=== PATIENT | female | born 1930 | race Caucasian/White ===

== ENCOUNTER 2016-05-24 09:19 | Inpatient (IN) | payer MEDICARE, BC, MEDICAID ==
[2016-05-24] MEDS ORDERED: IPRATROPIUM BROMIDE 0.5 MG/2.5 ML DOSE ONE (10:24)
[2016-05-24 10:45] LABS: ABSOLUTE NEUTROPHIL COUNT 4.9 K/mm3 (1.8-7.7); BASO % 0.3 % (0.2-1.0); HEMATOCRIT 35.7 % (37.0-47.0); HEMOGLOBIN 11.6 gm/l (12.0-16.0); IMM NEUT% 0.3 % (0-1); LYMPH # 0.6 (1.0-4.8); LYMPH % 9.6 % (15-45); MEAN CELL VOLUME 93.9 fl (81.0-99.0); MEAN CORPUSCULAR HEMOGLOBIN 30.5 pg (27.0-31.0); MEAN CORPUSCULAR HGB CONC 32.5 g/dl (33.0-37.0); MEAN PLATELET VOLUME 7.6 fl (7.4-10.4); MONO # 0.7 (0.0-0.8); MONO % 10.9 % (4-12); NEUT % 78.9 % (43-75); PLATELET COUNT 314 K/mm3 (130-400); RED CELL DISTRIBUTION WIDTH 14.3 % (11.5-14.5)
[2016-05-24 10:55] LABS: ALB/GLOB RATIO 1.1 (>1.0); ALBUMIN 3.4 gm/dL (3.5-5.7); CALCIUM 9.1 mg/dL (8.6-10.3); MAGNESIUM 1.8 mg/dL (1.9-2.7)
[2016-05-24] MEDS ORDERED: LACTATED RINGERS 1,000 ML ONE ×2 (11:13→12:12)
--- NOTE | 2016-05-24 11:49 | RAD ---
CHEST 2 VIEWS HISTORY: Cough and shortness of breath. Frontal and lateral chest radiographs dated 05/16/2016. COMPARISON: 05/23/2016 FINDINGS: FOCAL AIRSPACE OPACITY: Progressive retrocardiac density. PLEURAL EFFUSION: Small pleural effusions, left greater than right. CARDIOMEDIASTINAL SILHOUETTE: Redemonstration of cardiomegaly. PNEUMOTHORAX: None identified. OSSEOUS STRUCTURES: Thoracic disc degeneration. LUNG VOLUMES: Hyperinflation. POSTPROCEDURAL CHANGE: Evidence of prior right mastectomy and axillary dissection. IMPRESSION: 1. Redemonstration of left lower lobe pneumonia, mildly worsened over the interval. 2. Background changes of hyperinflation, correlate for obstructive pulmonary disease. 3. Thoracic spondylosis. 4. Evidence of prior right mastectomy and axillary dissection.
[2016-05-24] MEDS ORDERED: CEFTRIAXONE SODIUM 1 G VIAL ONE (12:11)
[2016-05-24] MEDS ORDERED: SODIUM CHLORIDE 0.9% 50 ML IV ONE (12:11)
[2016-05-24] MEDS ORDERED: AZITHROMYCIN 500 MG VIAL ONE (12:11)
[2016-05-24 13:09] VITALS: BMI 31.1
[2016-05-24] MEDS ORDERED: MAGNESIUM HYDROXIDE 30 ML UDCUP PO PRN (13:25)
[2016-05-24] MEDS ORDERED: BISACODYL 5 MG TABLET.EC PO PRN (13:25)
[2016-05-24] MEDS ORDERED: DIPHENHYDRAMINE HCL 25 MG CAPSULE PO PRN (13:25)
[2016-05-24] MEDS ORDERED: BISACODYL 10 MG SUP PR PRN (13:25)
[2016-05-24] MEDS ORDERED: BLISTEX LIPSTICK 1 EACH TP PRN (13:25)
[2016-05-24] MEDS ORDERED: MENTHOL/CETYLPYRD 1 EACH LOZENGE PO PRN (13:25)
[2016-05-24] MEDS ORDERED: SODIUM CHLORIDE 0.9% 1,000 ML IV SCH (13:30)
[2016-05-24] MEDS ORDERED: CEFTRIAXONE 1 GRAM DUPLEX 1 G in Premix (D5W) 50 ml 1 EACH IV SCH (13:45)
[2016-05-24] MEDS: METOPROLOL TARTRATE 50 MG TABLET PO SCH ×2 (14:37→20:39)
[2016-05-24] MEDS: PREDNISONE 20 MG TABLET PO SCH (14:37)
[2016-05-24] MEDS: ENOXAPARIN SODIUM 40 MG/0.4 ML SYRINGE SUB-Q SCH (14:38)
[2016-05-24] MEDS: ALBUTEROL/IPRATROPIUM 2.5/0.5 MG 3 ML/EACH DOSE NEB SCH ×2 (15:51→20:05)
--- NOTE | 2016-05-24 19:18 | HP ---
GAL PARKS : 1930 [id number] DATE OF ADMISSION: May 24, 2016 PRIMARY CARE PROVIDER: Usha Fields CHIEF COMPLAINT: Cough. HISTORY OF PRESENT ILLNESS: Patient is an 85-year-old female who has been coughing for the past month or so. In the past two days, though, she notes that her cough has gotten significantly worse. She went to the urgent care last night and was evaluated there. They recommended that she go to the hospital though she refused. She was given azithromycin to take for pneumonia that was diagnosed by chest x-ray there. Patient did tolerate a single dose of the azithromycin last night. However, this morning when she took her azithromycin, she then had an episode of nausea and vomiting and lost that medication. Patient was having increased shortness of breath this morning as well as cough and so she came to the emergency department. She was noted to be now requiring oxygen. In the emergency room she maintained sats over 90% and so is admitted for management of pneumonia requiring oxygen. REVIEW OF SYSTEMS: A full 14-point review of systems is performed and is positive for a cough, positive for nausea and vomiting this morning though no nausea and vomiting other times, positive for generalize malaise and weakness. Patient is not able to get up sputum although she states she feels like she needs to. She also notes that she feels like her heart is skipping beats. She does not know of any history of atrial fibrillation. All other review of systems is negative. PAST MEDICAL HISTORY: Includes: 1. Diverticulosis. 2. Depression. 3. Gastroesophageal reflux disease. 4. Hypertension. 5. Hyponatremia. Baseline sodium around 130 to 132. 6. Polio with neurologic changes. She has an indwelling suprapubic catheter as well as bilateral lower extremities braces. 7. Neurogenic bladder. 8. Spinal stenosis. 9. She did have some breast cancer approximately 15 years ago. MEDICATIONS: Patient is takin. Methenamine hippurate 1 g orally twice daily. 2. Sodium chloride 1 g orally daily. 3. Mirtazapine 30 mg orally at bedtime. 4. Vitamin D3 1000 international units orally daily. 5. Singulair 10 mg orally daily. 6. Super C 500 mg orally daily. ALLERGIES TO MEDICATIONS: PATIENT IS ALLERGIC TO: 1. CONTRAST DYE. 2. SHELLFISH. 3. HYDROCODONE. 4. MEPERIDINE. PAST SURGICAL HISTORY: Positive for: 1. Hysterectomy. 2. Back surgery. 3. section. 4. She also had a suprapubic catheter placed at some point. 5. She did have a right mastectomy. SOCIAL HISTORY: Patient lives alone. She denies any smoking or drug use. She has a daughter who is with her today. FAMILY MEDICAL HISTORY: Noncontributory. PHYSICAL EXAM: VITAL SIGNS: Temperature 98.1, pulse is 95, blood pressure 164/87, respiratory rate 28, saturating 96% on room air by time of admission. GENERAL: Patient is lying in bed. She does have a weak cough. She is alert and oriented and does not appear to be in any distress. HEENT: Normocephalic, atraumatic. Mucous membranes moist. Oropharynx is clear. Pupils are equal and reactive. HEART: Irregularly irregular rate and rhythm, slightly tachycardic. Positive S1 and S2, no murmurs or rubs are heard. RESPIRATORY: Patient has bilateral wheezes and crackles throughout with air movement diffusely. ABDOMEN: Soft, nontender, nondistended, positive bowel sounds. No hepatosplenomegaly. MUSCULOSKELETAL: She has bilateral lower extremities ankle foot orthosis. Using upper extremities without difficulty. NEUROLOGIC: Patient is awake, alert and oriented times three. PSYCHOLOGIC: Patient is affect is full and appropriate. LABORATORIES: Sodium is 127, potassium is 4.1, chloride is 92, CO2 is 26, BUN is 10, creatinine is 0.6, glucose is 151, calcium is 9.1, magnesium is 1.8, bilirubin 0.4, AST and ALT are both normal, alkaline phosphatase is 159, troponin is 0.01. BNP is 127. CBC shows a white count of 6.3, hemoglobin 11.6, hematocrit is 35.7 and platelet count of 314 with a slight left shift and neutrophils of 78.9%. VBG lactate in the emergency department shows 2.6 after administration of her of IV fluids in the emergency room, though, her repeat VBG showed 1.7. ASSESSMENT AND PLAN: 1. Pneumonia. Patient has community acquired pneumonia which is in her left lower lobe per x-ray. She will be receiving ceftriaxone IV 1 g every 24 hours as well as azithromycin as the patient did start azithromycin orally. She got one dose of IV azithromycin but I am going to continue oral azithromycin while she is here in the hospital. She will be receiving oxygen and nebulizers as needed while she is here, and we will monitor and adjust course as necessary. I am not going to be starting her on any steroids at this point. However, that would be a possible addition should she not do well. 2. History of polio. Patient does have braces in place as well as a suprapubic catheter. We will be caring for her suprapubic catheter if necessary. 3. Atrial fibrillation. It apparently appears to be relatively new although she has had symptoms of palpitations for several weeks, thus I do not think it is new onset at this point, but more likely a relatively new occurrence for her in the past several weeks to months. Patient was on metoprolol in the past. I am going to restart her metoprolol at 50 mg orally twice daily in the hopes that this will help both her blood pressure as well as her atrial fibrillation rate. I have discussed the possibility of starting Coumadin with her. She declines to start now and would prefer to wait until she can discuss with her primary care provider. She is concerned about the risks and side effects of the Coumadin. Instead we will be placing her on aspirin at full dose for anticoagulation as well as Lovenox while she is here in the hospital. 4. Hypertension. Patient will be given the metoprolol as noted above and will be adjusting for blood pressure control as necessary. 5. Reflux. Patient will be given pantoprazole for management of her heartburn. 6. Hyponatremia. Patient is going to be monitored. It appears she is relatively close to her baseline of 127. I suspect this will improve even more so with the IV fluids that she received in the emergency department. We will follow up on this in the morning and continue her oral sodium chloride as is. 7. Constipation. Patient apparently has a history of constipation although this has been relatively well controlled at home on [id number] medications. I will be ordering bowel care as necessary. 8. Deep venous thrombosis prophylaxis. As noted above, the patient will be on Lovenox for prophylaxis of clots. This will cover her for deep venous thrombosis prophylaxis as well. 9. Code status. Patient wishes to be DO NOT RESUSCITATE in conversation at time of this admission. Cc: Usha Fields
[2016-05-24] MEDS: ACETAMINOPHEN 325 MG TABLET PO PRN (20:39)
[2016-05-24] MEDS: DOCUSATE SODIUM 100 MG CAPSULE PO SCH (20:39)
[2016-05-25] MEDS: ALBUTEROL NEB 2.5 MG/3 ML VIAL.NEB NEB PRN (03:59)
[2016-05-25 06:02] LABS: ABSOLUTE NEUTROPHIL COUNT 4.1 K/mm3 (1.8-7.7); BASO % 0.2 % (0.2-1.0); HEMATOCRIT 34.3 % (37.0-47.0); HEMOGLOBIN 11.3 gm/l (12.0-16.0); IMM NEUT% 0.4 % (0-1); LYMPH # 0.8 (1.0-4.8); LYMPH % 14.1 % (15-45); MEAN CELL VOLUME 92.7 fl (81.0-99.0); MEAN CORPUSCULAR HEMOGLOBIN 30.5 pg (27.0-31.0); MEAN CORPUSCULAR HGB CONC 32.9 g/dl (33.0-37.0); MEAN PLATELET VOLUME 7.9 fl (7.4-10.4); MONO # 0.6 (0.0-0.8); MONO % 10.6 % (4-12); NEUT % 74.7 % (43-75); PLATELET COUNT 310 K/mm3 (130-400); RED CELL DISTRIBUTION WIDTH 14.3 % (11.5-14.5)
--- NOTE | 2016-05-25 08:01 | PDOC43 ---
- Subjective Chief Complaint: cough pt notes improvement in malaise as well as cough. she notes nebs are helpful. no fevers/chills. coughing still but improved. no wheezing reported by pt Subjective: Reports Pain Tolerable, Reports Tolerating Diet Well, Reports Adequate Oral Intake, Reports Flatus, Reports Urinating Without Difficulty, Reports Cough, Denies Shortness of Breath, Denies Chest Pain, Denies Abdominal Pain, Denies Nausea, Denies Vomiting, Denies Fever, Denies Chills - Objective Vital Signs Temperature 98.4 F 05/25/16 04:00 Pulse Rate 96 05/25/16 04:00 Respiratory Rate 36 05/25/16 07:00 Blood Pressure 165/72 05/25/16 04:00 O2 Saturation by Pulse Oximetry 99 05/25/16 04:00 Oxygen Delivery Method Room Air Oxygen Flow Rate 0 Intake and Output 05/23/16 05/24/16 05/25/16 23:59 23:59 23:59 Intake Total 1000 500 Output Total 700 550 Balance 300 -50 General: Alert, Oriented x3, Cooperative, No Acute Distress HEENT: Atraumatic, Mucous membr. moist/pink Lungs: Normal Air Movement (improved from yesterday evening.), No Clear to Auscultation Bilaterally (wheezes BL throughout, but improved) Cardiovascular: Irregular, Normal S1, Normal S2, No Murmur Abdomen: Soft, Normal Bowel Sounds, Non-Distended, No Tenderness Extremities: No Cyanosis, No Edema, No Tenderness Neurological: Normal Speech Psych/Mental Status: Normal Affect, Normal Mood Laboratory 05/25/16 05:10 05/25/16 05:10 05/25/16 05:10 RBC 3.70 L MCHC 32.9 L Estimated GFR 118 H Current Medications: Current meds reviewed in EMR. - Problems: Assessment/Plan (1) Anemia Qualifiers: Anemia type: other cause Other causes of anemia: chronic disease, other Qualifier Code: (D63.8) Anemia in other chronic diseases classified elsewhere Status: Acute Assessment/Plan: stable. no loss apparent currently (2) Hyponatremia Status: Chronic Assessment/Plan: chronic and appears at baseline. continue home NaCl (3) Post-polio syndrome Status: Chronic Assessment/Plan: has BL braces. also cause of neurogenic bladder. care as needed PT to eval pt (4) GERD (gastroesophageal reflux disease) Status: Chronic Assessment/Plan: controlled, on PPI (5) Hypertension Qualifiers: Hypertension type: essential hypertension Qualifier Code: (I10) Essential (primary) hypertension Status: Chronic Assessment/Plan: elevated today. pt was apparently off metoprolol and amlodipine prior to admit. added back today due to elevated BPs (6) Neurogenic bladder Status: Chronic Assessment/Plan: has suprapubic cath. due to polio care ordered for cath. (7) Community acquired bacterial pneumonia Status: Acute Assessment/Plan: LLL PNA. took only 1 dose of azithro prior to coming in. had O2 requirement on first admit O2 requirement now resolved, pt improving. significant wheezing raises question of underlying COPD, though not on her history or OP chart. duo nebs scheduled with albuterol q2 if needed. on rocephin and azithro PO. will change to keflex after todays rocephin as she is improving well. (8) Atrial fibrillation Qualifiers: Atrial fibrillation type: paroxysmal Qualifier Code: (I48.0) Paroxysmal atrial fibrillation Status: Chronic Assessment/Plan: new dx for pt but has been present per hx for several weeks. not on anticoag as OP, discussed and pt and daughter decline Coumadin initiation in this stay. will give full dose ASA on DC. currently on lovenox rate controlled on metoprolol VTE Prophylaxis: lovenox Disposition: anticipate DC Home in 1-2 days
[2016-05-25] MEDS: ACETAMINOPHEN 325 MG TABLET PO PRN ×2 (08:45→16:02)
[2016-05-25] MEDS: AZITHROMYCIN 250 MG TABLET PO SCH (08:45)
[2016-05-25] MEDS: AMLODIPINE BESYLATE 5 MG TABLET PO SCH (08:46)
[2016-05-25] MEDS: METOPROLOL TARTRATE 50 MG TABLET PO SCH ×2 (08:46→21:17)
[2016-05-25] MEDS: PANTOPRAZOLE 40 MG TABLET DR PO SCH (08:46)
[2016-05-25] MEDS: DOCUSATE SODIUM 100 MG CAPSULE PO SCH ×2 (08:46→21:17)
[2016-05-25] MEDS: PREDNISONE 20 MG TABLET PO SCH (08:46)
[2016-05-25] MEDS ORDERED: CEFTRIAXONE 1 GRAM DUPLEX 1 G in Premix (D5W) 50 ml 1 EACH IV SCH (12:00)
[2016-05-25] MEDS ORDERED: PUMP TUBING ONE (12:49)
[2016-05-25] MEDS: SODIUM CHLORIDE 0.9% 100 ML IV PRN (12:56)
[2016-05-25] MEDS: ENOXAPARIN SODIUM 40 MG/0.4 ML SYRINGE SUB-Q SCH ×2 (12:56→14:00)
[2016-05-25] MEDS: ALBUTEROL/IPRATROPIUM 2.5/0.5 MG 3 ML/EACH DOSE NEB SCH ×3 (13:03→16:45)
[2016-05-25] MEDS ORDERED: ONDANSETRON 4 MG/2ML 2 ML VIAL ONE (15:59)
[2016-05-25] MEDS: ONDANSETRON 4 MG/2ML 2 ML VIAL IV PRN (16:02)
[2016-05-26] MEDS: ACETAMINOPHEN 325 MG TABLET PO PRN ×3 (00:24→18:02)
[2016-05-26] MEDS: ALBUTEROL/IPRATROPIUM 2.5/0.5 MG 3 ML/EACH DOSE NEB SCH ×5 (00:43→20:18)
[2016-05-26 06:04] LABS: ABSOLUTE NEUTROPHIL COUNT 8.6 K/mm3 (1.8-7.7); BASO % 0.1 % (0.2-1.0); CALCIUM 9.3 mg/dL (8.6-10.3); HEMATOCRIT 37.6 % (37.0-47.0); HEMOGLOBIN 12.3 gm/l (12.0-16.0); IMM NEUT% 0.4 % (0-1); LYMPH # 0.8 (1.0-4.8); LYMPH % 7.9 % (15-45); MEAN CELL VOLUME 94.2 fl (81.0-99.0); MEAN CORPUSCULAR HEMOGLOBIN 30.8 pg (27.0-31.0); MEAN CORPUSCULAR HGB CONC 32.7 g/dl (33.0-37.0); MEAN PLATELET VOLUME 7.8 fl (7.4-10.4); MONO # 1.1 (0.0-0.8); MONO % 10.2 % (4-12); NEUT % 81.4 % (43-75); PLATELET COUNT 382 K/mm3 (130-400); RED CELL DISTRIBUTION WIDTH 14.2 % (11.5-14.5)
[2016-05-26] MEDS ORDERED: FUROSEMIDE 20 MG/2 ML VIAL IV ONE (08:08)
--- NOTE | 2016-05-26 08:16 | RAD ---
Exam: Portable chest COMPARISON: Radiographs 05/24/2016, 05/23/2016 and 04/10/[address] chest 04/12/2016 INDICATION: Decreased oxygen saturation and increased respiratory rate. Findings: Semierect AP portable view of the chest at 0800 hours was obtained. Examination is slightly limited due to motion artifact. Mild cardiomegaly is similar. There are chronic left greater than right pleural effusions. The left-sided pleural effusion is moderate in size and definitely increased since March, as well as minimally increased over the past few days. The right-sided pleural effusion is small and unchanged. Upper lungs remain relatively clear. Surgical clips are again noted in the right chest wall and axilla. IMPRESSION: Left greater than right chronic pleural effusions, with slight interval increase in the left-sided pleural effusion.
[2016-05-26] MEDS: PANTOPRAZOLE 40 MG TABLET DR PO SCH (08:24)
[2016-05-26] MEDS: PREDNISONE 20 MG TABLET PO SCH (08:24)
[2016-05-26] MEDS: MONTELUKAST SODIUM 10 MG TABLET PO SCH (08:24)
[2016-05-26] MEDS: AZITHROMYCIN 250 MG TABLET PO SCH (08:24)
[2016-05-26] MEDS: METOPROLOL TARTRATE 50 MG TABLET PO SCH ×2 (08:24→21:06)
[2016-05-26] MEDS: DOCUSATE SODIUM 100 MG CAPSULE PO SCH ×2 (08:25→21:06)
[2016-05-26] MEDS: AMLODIPINE BESYLATE 5 MG TABLET PO SCH (08:25)
--- NOTE | 2016-05-26 08:26 | PDOC43 ---
- Subjective Chief Complaint: cough Anxious and moaning this a.m. Has required increase in O2 to 4 L/min. C/o dyspnea and nnon-productive cough, no chest pain or other symptoms - Objective Vital Signs Temperature 98.4 F 05/26/16 06:56 Pulse Rate 104 05/26/16 06:56 Respiratory Rate 44 05/26/16 06:56 Blood Pressure 157/91 05/26/16 06:56 O2 Saturation by Pulse Oximetry 73 05/26/16 06:56 Oxygen Delivery Method Room Air Oxygen Flow Rate 0 Intake and Output 05/25/16 05/26/16 05/27/16 06:59 06:59 06:59 Intake Total 1500 1735 Output Total 1250 1400 Balance 250 335 General: Alert, Oriented x3, Cooperative, Moderate Distress HEENT: Mucous membr. moist/pink Lungs: Other (exp wheezes throughout, ronchi bilat R > L) Cardiovascular: Irregular (rapid) Abdomen: Soft, Normal Bowel Sounds, No Tenderness, No Masses Extremities: No Edema Skin: Normal Color Neurological: Normal Speech Psych/Mental Status: Anxious Laboratory 05/26/16 05:15 05/26/16 05:15 05/26/16 05:15 RBC 3.99 L MCHC 32.7 L Estimated GFR 95 H Current Medications: Current meds reviewed in EMR. - Problems: Assessment/Plan (1) CHF (congestive heart failure) Qualifiers: Congestive heart failure type: unspecified congestive heart failure type Congestive heart failure chronicity: acute Qualifier Code: (I50.9) Heart failure, unspecified Status: Acute Assessment/Plan: Appears to have acute pulmonary edema this a.m. Furosemide ordered and follow. (2) Community acquired bacterial pneumonia Status: Acute Assessment/Plan: Presumed bacterial LLL PNA present on admit. took only 1 dose of azithro prior to coming in. had O2 requirement which resolved but now has hypoxemia. significant wheezing raises question of underlying COPD, though not on her history or OP chart. duo nebs scheduled with albuterol q2 if needed. Continue ceftriaxone and azithro PO. (3) Atrial fibrillation Qualifiers: Atrial fibrillation type: paroxysmal Qualifier Code: (I48.0) Paroxysmal atrial fibrillation Status: Chronic Assessment/Plan: new dx for pt but has been present per hx for several weeks. not on anticoag as OP, discussed and pt and daughter decline Coumadin initiation in this stay. will give full dose ASA on DC. currently on lovenox rate controlled on metoprolol (4) Hypomagnesemia Status: Acute Assessment/Plan: Replace and repeat test. (5) Anemia Qualifiers: Anemia type: other cause Other causes of anemia: chronic disease, other Qualifier Code: (D63.8) Anemia in other chronic diseases classified elsewhere Status: Acute Assessment/Plan: stable. no loss apparent currently (6) Hyponatremia Status: Chronic Assessment/Plan: chronic and appears at baseline. resume home NaCl (7) Post-polio syndrome Status: Chronic Assessment/Plan: has BL braces. also cause of neurogenic bladder. care as needed PT to eval pt (8) GERD (gastroesophageal reflux disease) Qualifiers: Esophagitis presence: esophagitis presence not specified Qualifier Code : (K21.9) Gastro-esophageal reflux disease without esophagitis Status: Chronic Assessment/Plan: controlled, on PPI (9) Hypertension Qualifiers: Hypertension type: essential hypertension Qualifier Code: (I10) Essential (primary) hypertension Status: Chronic Assessment/Plan: Still significantly elevated, increase metoprolol dose, continue amlodipine. (10) Neurogenic bladder Status: Chronic Assessment/Plan: has suprapubic cath. due to polio care ordered for cath. VTE Prophylaxis: lovenox Disposition: anticipate DC to SNF in 1-3 days.
[2016-05-26] MEDS: CEFTRIAXONE 1 GRAM DUPLEX 1 G in Premix (D5W) 50 ml 1 EACH IV SCH (08:53)
[2016-05-26] MEDS: SODIUM CHLORIDE 1 G TABLET PO SCH ×2 (08:53→21:05)
[2016-05-26] MEDS: METHENAMINE HIPPURATE 1 GM PO SCH ×2 (08:54→22:21)
[2016-05-26] MEDS ORDERED: CEPHALEXIN 500 MG CAPSULE PO SCH (09:00)
[2016-05-26] MEDS ORDERED: MAGNESIUM SULFATE 2 G/50 ML 2 G in Premix (Water) 50 ml 1 EACH IV ONE (09:00)
[2016-05-26 11:49] LABS: INR 1.09; PROTHROMBIN TIME 11.6 SECONDS (9.3-11.4)
[2016-05-26 13:38] LABS: TOTAL PROTEIN,BODY FLUID 1.5 g/dl
[2016-05-26] MEDS ORDERED: SODIUM BICARBONATE 4.2% VIAL 5 ML IV ONE (13:50)
[2016-05-26 14:03] LABS: BODY FLUID APPEARANCE CLEAR; BODY FLUID COLOR COLORLESS; BODY FLUID SOURCE PLEURAL FLUID
[2016-05-26 14:05] LABS: BODY FLUID RBC 2 k/uL
[2016-05-26 14:06] LABS: BODY FLUID WBC 666 /uL
[2016-05-26 14:07] LABS: BODY FLUID MONONUCLEAR 91 %; BODY FLUID NEUTROPHIL 9 %
--- NOTE | 2016-05-26 14:16 | US ---
Procedure: Ultrasound-guided left-sided thoracentesis Comparison: Chest radiograph 05/26/2016 Indication: Bilateral pleural effusions, left greater than right. Left-sided pleural effusion is increasing. Technique: The benefits and risks of the procedure were discussed with the patient. All questions were answered. Informed consent was obtained and witnessed and documentation was placed in the patient's medical record. A timeout was made to ensure correct patient identity and procedure. Ultrasound was utilized to elpidio an appropriate entrance site on the skin in the posterior left chest wall. The skin was prepped and draped in the usual sterile fashion. 1% lidocaine mixed with bicarbonate was administered to achieve a regional level of anesthesia. A tiny skin incision was made. A 5 [place] [employer] catheter was placed into the pleural space and 550 mL of thin yellow fluid was withdrawn. 10 mL of fluid was sent to the laboratory for analysis as requested by the referring physician. The patient tolerated the procedure and there were no immediate complications. Post procedure imaging demonstrated minimal pleural fluid remaining. Impression: Successful ultrasound-guided left-sided thoracentesis yielding 550 mL of thin yellow fluid.
[2016-05-26] MEDS: ENOXAPARIN SODIUM 40 MG/0.4 ML SYRINGE SUB-Q SCH (14:23)
[2016-05-26] MEDS: ALBUTEROL NEB 2.5 MG/3 ML VIAL.NEB NEB PRN (21:24)
[2016-05-27] MEDS: ALBUTEROL NEB 2.5 MG/3 ML VIAL.NEB NEB PRN (05:53)
[2016-05-27 06:06] LABS: MEAN CELL VOLUME 92.7 fl (81.0-99.0); MEAN CORPUSCULAR HEMOGLOBIN 30.1 pg (27.0-31.0); MEAN CORPUSCULAR HGB CONC 32.4 g/dl (33.0-37.0); RED CELL DISTRIBUTION WIDTH 14.3 % (11.5-14.5)
[2016-05-27 06:24] LABS: MAGNESIUM 2.2 mg/dL (1.9-2.7)
[2016-05-27] MEDS: METOPROLOL TARTRATE 50 MG TABLET PO SCH ×2 (08:20→21:11)
[2016-05-27] MEDS: PANTOPRAZOLE 40 MG TABLET DR PO SCH (08:20)
[2016-05-27] MEDS: AMLODIPINE BESYLATE 5 MG TABLET PO SCH (08:21)
[2016-05-27] MEDS: ACETAMINOPHEN 325 MG TABLET PO PRN (08:33)
[2016-05-27] MEDS: ALPRAZOLAM 0.25 MG TABLET PO PRN ×2 (09:20→21:11)
[2016-05-27] MEDS: DOCUSATE SODIUM 100 MG CAPSULE PO SCH ×2 (09:21→21:12)
[2016-05-27] MEDS: AZITHROMYCIN 250 MG TABLET PO SCH (09:21)
[2016-05-27] MEDS: PREDNISONE 20 MG TABLET PO SCH (09:21)
[2016-05-27] MEDS: MONTELUKAST SODIUM 10 MG TABLET PO SCH (09:21)
[2016-05-27] MEDS ORDERED: PUMP TUBING ONE (09:27)
[2016-05-27] MEDS: SODIUM CHLORIDE 0.9% 100 ML IV PRN (09:28)
[2016-05-27] MEDS: CEFTRIAXONE 1 GRAM DUPLEX 1 G in Premix (D5W) 50 ml 1 EACH IV SCH (09:33)
[2016-05-27] MEDS: METHENAMINE HIPPURATE 1 GM PO SCH ×2 (09:34→21:12)
[2016-05-27] MEDS: SODIUM CHLORIDE 1 G TABLET PO SCH ×2 (09:35→21:12)
[2016-05-27] MEDS: ALBUTEROL/IPRATROPIUM 2.5/0.5 MG 3 ML/EACH DOSE NEB SCH ×4 (09:55→20:15)
[2016-05-27] MEDS ORDERED: AMLODIPINE BESYLATE 5 MG TABLET PO SCH (10:23)
[2016-05-27] MEDS ORDERED: POTASSIUM CHLORIDE 20 MEQ TAB.PRT.SR PO ONE (10:27)
--- NOTE | 2016-05-27 10:27 | PDOC43 ---
- Subjective Chief Complaint: cough Still feels ill and dyspnic but a little better post thoracentesis. Eating well. - Objective Vital Signs Temperature 97.9 F 05/27/16 07:48 Pulse Rate 101 05/27/16 07:48 Respiratory Rate 38 05/27/16 07:48 Blood Pressure 177/102 05/27/16 07:48 O2 Saturation by Pulse Oximetry 93 05/27/16 07:48 Oxygen Delivery Method Nasal Cannula Oxygen Flow Rate 2 Intake and Output 05/26/16 05/27/16 05/28/16 06:59 06:59 06:59 Intake Total 1735 647 Output Total 1400 1275 Balance 335 -628 General: Alert, Oriented x3, Cooperative, Mild Distress HEENT: Mucous membr. moist/pink Lungs: Other (exp wheezes throughout, improved air movement on left) Cardiovascular: Irregular Abdomen: Soft, Normal Bowel Sounds, No Tenderness, No Masses Extremities: Pulses Diminished but Palpable, No Edema Skin: Normal Color Neurological: Normal Speech Psych/Mental Status: Anxious Laboratory 05/27/16 05:15 05/27/16 05:15 05/27/16 05/26/16 05:15 11:30 RBC 3.99 L MCHC 32.4 L PT 11.6 H Estimated GFR 95 H Current Medications: Current meds reviewed in EMR. - Problems: Assessment/Plan (1) CHF (congestive heart failure) Qualifiers: Congestive heart failure type: unspecified congestive heart failure type Congestive heart failure chronicity: acute Qualifier Code: (I50.9) Heart failure, unspecified Status: Acute Assessment/Plan: Diuresed 628 mL after one dose of furosemide 05/26. Check ECHO. (2) Community acquired bacterial pneumonia Status: Acute Assessment/Plan: Presumed bacterial LLL PNA present on admit. took only 1 dose of azithro prior to coming in. had O2 requirement on admit, resolved, then returned With laney-pneumonic transudate drained on 05/26. significant wheezing raises question of underlying COPD, though not on her history or OP chart. Oral prednisone started 05/24 duo nebs scheduled with albuterol q2 if needed. Continue ceftriaxone and azithro PO. (3) Atrial fibrillation Qualifiers: Atrial fibrillation type: paroxysmal Qualifier Code: (I48.0) Paroxysmal atrial fibrillation Status: Chronic Assessment/Plan: new dx for pt but has been present per hx for several weeks. not on anticoag as OP, discussed and pt and daughter decline Coumadin initiation in this stay. will give full dose ASA on DC. currently on lovenox rate controlled on metoprolol (4) Hypomagnesemia Status: Acute Assessment/Plan: Resolved. (5) Anemia Qualifiers: Anemia type: other cause Other causes of anemia: chronic disease, other Qualifier Code: (D63.8) Anemia in other chronic diseases classified elsewhere Status: Acute Assessment/Plan: stable. no blood loss apparent currently (6) Hyponatremia Status: Chronic Assessment/Plan: chronic and appears at baseline. Continue home NaCl dose (7) Post-polio syndrome Status: Chronic Assessment/Plan: has BL braces. also cause of neurogenic bladder. care as needed PT to eval pt (8) GERD (gastroesophageal reflux disease) Qualifiers: Esophagitis presence: esophagitis presence not specified Qualifier Code : (K21.9) Gastro-esophageal reflux disease without esophagitis Status: Chronic Assessment/Plan: controlled, on PPI (9) Hypertension Qualifiers: Hypertension type: essential hypertension Qualifier Code: (I10) Essential (primary) hypertension Status: Chronic Assessment/Plan: Still significantly elevated, increase metoprolol, continue amlodipine. (10) Neurogenic bladder Status: Chronic Assessment/Plan: has suprapubic cath. due to polio care ordered for cath. (11) Hypokalemia Status: Acute Assessment/Plan: due to diuresis, replace. VTE Prophylaxis: lovenox Disposition: anticipate DC to SNF in 1-3 days.
[2016-05-27] MEDS: FUROSEMIDE 20 MG TABLET PO SCH (11:18)
[2016-05-27] MEDS: POTASSIUM CHLORIDE 10 MEQ TAB.SR PO SCH ×2 (11:18→21:12)
[2016-05-27] MEDS: ENOXAPARIN SODIUM 40 MG/0.4 ML SYRINGE SUB-Q SCH (13:45)
[2016-05-28] MEDS: ACETAMINOPHEN 325 MG TABLET PO PRN (07:31)
[2016-05-28] MEDS: ALPRAZOLAM 0.25 MG TABLET PO PRN ×2 (07:45→21:11)
--- NOTE | 2016-05-28 09:29 | SURGPATH ---
[facility] [address] [place] [id number] Patient Name: GAL PARKS MR#: [id number] : 1930 Gender: F Specimen #: [id number] Collected: 05/26/2016 Received: 05/27/2016 Reported: 05/28/2016 Submitting Phys: MASOUD SALES Copy To Phys: NICKIE CARNES JULIAN KIRKPATRICK, NOEMI [facility] Clinical History / Pre-Operative Diagnosis: Pleural effusion Specimen Source / Surgical Procedure Performed: Left Pleural Fluid Interpretation: PLEURAL FLUID, LEFT, THORACENTESIS: - NO MALIGNANT CELLS IDENTIFIED Electronically Signed Out Flaco Matias M.D. Gross Description: 35ml of slightly cloudy pale beige fluid in cytolyt. Prepared: 1 double fixed cytospin. Microscopic Description: Cytospins show lymphocytes, proteinaceous material, and mesothelial cells. No malignant cells are identified. [id number]: [id number]
[2016-05-28] MEDS: CEFTRIAXONE 1 GRAM DUPLEX 1 G in Premix (D5W) 50 ml 1 EACH IV SCH (09:58)
[2016-05-28] MEDS: SODIUM CHLORIDE 0.9% 100 ML IV PRN (09:58)
[2016-05-28] MEDS ORDERED: PUMP TUBING ONE (09:59)
[2016-05-28] MEDS: SODIUM CHLORIDE 1 G TABLET PO SCH ×2 (10:05→21:16)
[2016-05-28] MEDS: AZITHROMYCIN 250 MG TABLET PO SCH (10:05)
[2016-05-28] MEDS: FUROSEMIDE 20 MG TABLET PO SCH (10:06)
[2016-05-28] MEDS: AMLODIPINE BESYLATE 5 MG TABLET PO SCH (10:06)
[2016-05-28] MEDS: MONTELUKAST SODIUM 10 MG TABLET PO SCH (10:06)
[2016-05-28] MEDS: POTASSIUM CHLORIDE 10 MEQ TAB.SR PO SCH ×2 (10:06→21:11)
[2016-05-28] MEDS: PREDNISONE 20 MG TABLET PO SCH (10:06)
[2016-05-28] MEDS: DOCUSATE SODIUM 100 MG CAPSULE PO SCH ×2 (10:07→21:12)
[2016-05-28] MEDS: METOPROLOL TARTRATE 50 MG TABLET PO SCH ×2 (10:07→21:12)
[2016-05-28] MEDS: PANTOPRAZOLE 40 MG TABLET DR PO SCH (10:07)
--- NOTE | 2016-05-28 10:26 | PDOC43 ---
- Subjective Chief Complaint: cough Sleeping after receiving one dose 0.125 mg alprazolam. Has been agitated and calling out for help frequently. Out patient records show that she should be on Remeron at bedtime. - Objective Vital Signs Temperature 97.5 F 05/28/16 08:34 Pulse Rate 76 05/28/16 08:34 Respiratory Rate 18 05/28/16 08:34 Blood Pressure 163/96 05/28/16 08:34 O2 Saturation by Pulse Oximetry 98 05/28/16 08:34 Oxygen Delivery Method Nasal Cannula Oxygen Flow Rate 2 Intake and Output 05/27/16 05/28/16 05/29/16 06:59 06:59 06:59 Intake Total 647 943 200 Output Total 1275 1575 Balance -628 -632 200 General: Other (somnolent) HEENT: Mucous membr. moist/pink Lungs: Other (exp wheezes) Cardiovascular: Irregular Abdomen: Soft, Normal Bowel Sounds, No Tenderness, No Masses Extremities: Normal Pulses, No Edema Skin: Normal Color Laboratory 05/27/16 05:15 05/28/16 05:15 05/28/16 05:15 Estimated GFR 118 H Current Medications: Current meds reviewed in EMR. - Problems: Assessment/Plan (1) CHF (congestive heart failure) Qualifiers: Congestive heart failure type: unspecified congestive heart failure type Congestive heart failure chronicity: acute Qualifier Code: (I50.9) Heart failure, unspecified Status: Acute Assessment/Plan: Diuresed 628 mL after one dose of furosemide 05/26. ECHO consistent with mild chronic diastolic heart failure, continue furosemide tx. (2) Community acquired bacterial pneumonia Status: Acute Assessment/Plan: Presumed bacterial LLL PNA present on admit. took only 1 dose of azithro prior to coming in. had O2 requirement on admit, resolved, then returned With laney-pneumonic transudate drained on 05/26. significant wheezing raises question of underlying COPD, though not on her history or OP chart. Oral prednisone started 05/24 duo nebs scheduled with albuterol q2 if needed. Continue ceftriaxone, finished course of azithromycin. Anticipate change to oral cephalosporin and prednisone taper back to baseline dose of 10 mg daily upon discharge. (3) Atrial fibrillation Qualifiers: Atrial fibrillation type: paroxysmal Qualifier Code: (I48.0) Paroxysmal atrial fibrillation Status: Chronic Assessment/Plan: new dx for pt but has been present per hx for several weeks. not on anticoag as OP, discussed and pt and daughter decline Coumadin initiation in this stay. will give full dose ASA on DC. currently on lovenox rate controlled on metoprolol (4) Hypomagnesemia Status: Acute Assessment/Plan: Resolved. (5) Anemia Qualifiers: Anemia type: other cause Other causes of anemia: chronic disease, other Qualifier Code: (D63.8) Anemia in other chronic diseases classified elsewhere Status: Acute Assessment/Plan: stable. no blood loss apparent currently (6) Hyponatremia Status: Chronic Assessment/Plan: Chronic but Na+ is normal when on her usual home NaCl dose. (7) Post-polio syndrome Status: Chronic Assessment/Plan: has BL braces. also cause of neurogenic bladder. care as needed Will need SNF rehab. (8) GERD (gastroesophageal reflux disease) Qualifiers: Esophagitis presence: esophagitis presence not specified Qualifier Code : (K21.9) Gastro-esophageal reflux disease without esophagitis Status: Chronic Assessment/Plan: controlled, on PPI (9) Hypertension Qualifiers: Hypertension type: essential hypertension Qualifier Code: (I10) Essential (primary) hypertension Status: Chronic Assessment/Plan: Metoprolol and amlodipine doses have been increased. Anxiety may be contributing, will not further increase antihypertensive doses today. (10) Neurogenic bladder Status: Chronic Assessment/Plan: has suprapubic cath. due to polio care ordered for cath. (11) Hypokalemia Status: Acute Assessment/Plan: due to diuresis, improving with replacement. 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 VTE Prophylaxis: lovenox Disposition: anticipate DC to SNF in tomorrow 05/29/16.
[2016-05-28] MEDS: METHENAMINE HIPPURATE 1 GM PO SCH ×2 (10:38→21:12)
[2016-05-28] MEDS: ALBUTEROL/IPRATROPIUM 2.5/0.5 MG 3 ML/EACH DOSE NEB SCH ×4 (12:25→20:16)
[2016-05-28] MEDS: ENOXAPARIN SODIUM 40 MG/0.4 ML SYRINGE SUB-Q SCH (14:15)
[2016-05-28] MEDS: ONDANSETRON 4 MG/2ML 2 ML VIAL IV PRN (14:23)
[2016-05-28] MEDS: MIRTAZAPINE 30 MG TABLET PO SCH (21:12)
[2016-05-29] MEDS: ALBUTEROL/IPRATROPIUM 2.5/0.5 MG 3 ML/EACH DOSE NEB SCH ×4 (07:39→20:21)
[2016-05-29] MEDS: CEFTRIAXONE 1 GRAM DUPLEX 1 G in Premix (D5W) 50 ml 1 EACH IV SCH (08:38)
[2016-05-29] MEDS: PREDNISONE 20 MG TABLET PO SCH (08:41)
[2016-05-29] MEDS: DOCUSATE SODIUM 100 MG CAPSULE PO SCH ×2 (08:41→22:10)
[2016-05-29] MEDS: PANTOPRAZOLE 40 MG TABLET DR PO SCH (08:41)
[2016-05-29] MEDS: METOPROLOL TARTRATE 50 MG TABLET PO SCH ×2 (08:41→22:10)
[2016-05-29] MEDS: POTASSIUM CHLORIDE 10 MEQ TAB.SR PO SCH ×2 (08:41→22:10)
[2016-05-29] MEDS: FUROSEMIDE 20 MG TABLET PO SCH (08:41)
[2016-05-29] MEDS: SODIUM CHLORIDE 1 G TABLET PO SCH ×2 (08:41→22:10)
[2016-05-29] MEDS: MONTELUKAST SODIUM 10 MG TABLET PO SCH (08:41)
[2016-05-29] MEDS: AMLODIPINE BESYLATE 5 MG TABLET PO SCH (08:41)
[2016-05-29] MEDS: METHENAMINE HIPPURATE 1 GM PO SCH ×2 (08:59→22:08)
[2016-05-29] MEDS: ENOXAPARIN SODIUM 40 MG/0.4 ML SYRINGE SUB-Q SCH (13:33)
--- NOTE | 2016-05-29 15:22 | PDOC43 ---
- Subjective Chief Complaint: cough No new c/o's. Subjective: Denies Shortness of Breath, Denies Chest Pain, Denies Abdominal Pain , Denies Nausea, Denies Vomiting, Denies Fever, Denies Chills - Objective Vital Signs Temperature 98.0 F 05/29/16 13:55 Pulse Rate 70 05/29/16 13:55 Respiratory Rate 18 05/29/16 13:55 Blood Pressure 134/83 05/29/16 13:55 O2 Saturation by Pulse Oximetry 94 05/29/16 13:55 Oxygen Delivery Method Nasal Cannula Oxygen Flow Rate 1 Intake and Output 05/28/16 05/29/16 05/30/16 06:59 06:59 06:59 Intake Total 943 850 Output Total 1575 2550 Balance -632 -1700 General: Alert, No Acute Distress HEENT: Atraumatic Lungs: Other (Rare scattered exp wheeze.) Cardiovascular: Irregular Abdomen: Soft, Normal Bowel Sounds, Non-Distended, No Tenderness Extremities: No Edema Current Medications: Current meds reviewed in EMR. - Problems: Assessment/Plan (1) CHF (congestive heart failure) Qualifiers: Congestive heart failure type: unspecified congestive heart failure type Congestive heart failure chronicity: acute Qualifier Code: (I50.9) Heart failure, unspecified Status: Acute Assessment/Plan: Diuresed 628 mL after one dose of furosemide 05/26. ECHO consistent with mild chronic diastolic heart failure, continue furosemide tx. (2) Community acquired bacterial pneumonia Status: Acute Assessment/Plan: Presumed bacterial LLL PNA present on admit. took only 1 dose of azithro prior to coming in. had O2 requirement on admit, resolved, then returned With laney-pneumonic transudate drained on 05/26. significant wheezing raises question of underlying COPD, though not on her history or OP chart. Oral prednisone started 05/24 duo nebs scheduled with albuterol q2 if needed. Continue ceftriaxone, finished course of azithromycin. Anticipate change to oral cephalosporin and prednisone taper back to baseline dose of 10 mg daily upon discharge. (3) Atrial fibrillation Qualifiers: Atrial fibrillation type: paroxysmal Qualifier Code: (I48.0) Paroxysmal atrial fibrillation Status: Chronic Assessment/Plan: new dx for pt but has been present per hx for several weeks. not on anticoag as OP, discussed and pt and daughter decline Coumadin initiation in this stay. will give full dose ASA on DC. currently on lovenox rate controlled on metoprolol (4) Anemia Qualifiers: Anemia type: other cause Other causes of anemia: chronic disease, other Qualifier Code: (D63.8) Anemia in other chronic diseases classified elsewhere Status: Acute Assessment/Plan: stable. no blood loss apparent currently (5) Hyponatremia Status: Chronic Assessment/Plan: Chronic but Na+ is normal when on her usual home NaCl dose. (6) Post-polio syndrome Status: Chronic Assessment/Plan: has BL braces. also cause of neurogenic bladder. care as needed Will need SNF rehab. (7) GERD (gastroesophageal reflux disease) Qualifiers: Esophagitis presence: esophagitis presence not specified Qualifier Code : (K21.9) Gastro-esophageal reflux disease without esophagitis Status: Chronic Assessment/Plan: controlled, on PPI (8) Hypertension Qualifiers: Hypertension type: essential hypertension Qualifier Code: (I10) Essential (primary) hypertension Status: Chronic Assessment/Plan: Stable on metoprolol and amlodipine. (9) Neurogenic bladder Status: Chronic Assessment/Plan: has suprapubic cath. due to polio care ordered for cath. 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 VTE Prophylaxis: lovenox Disposition: anticipate DC to SNF in tomorrow 05/30/16.
[2016-05-29] MEDS: ALPRAZOLAM 0.25 MG TABLET PO PRN (22:10)
[2016-05-29] MEDS: MIRTAZAPINE 30 MG TABLET PO SCH (22:11)
[2016-05-30] MEDS: ALBUTEROL NEB 2.5 MG/3 ML VIAL.NEB NEB PRN (00:43)
[2016-05-30] MEDS: METHENAMINE HIPPURATE 1 GM PO SCH (08:01)
[2016-05-30] MEDS: PANTOPRAZOLE 40 MG TABLET DR PO SCH (08:09)
[2016-05-30] MEDS: MONTELUKAST SODIUM 10 MG TABLET PO SCH (08:10)
[2016-05-30] MEDS: AMLODIPINE BESYLATE 5 MG TABLET PO SCH (08:10)
[2016-05-30] MEDS: PREDNISONE 20 MG TABLET PO SCH (08:10)
[2016-05-30] MEDS: CEFTRIAXONE 1 GRAM DUPLEX 1 G in Premix (D5W) 50 ml 1 EACH IV SCH (08:10)
[2016-05-30] MEDS: SODIUM CHLORIDE 1 G TABLET PO SCH (08:10)
[2016-05-30] MEDS: DOCUSATE SODIUM 100 MG CAPSULE PO SCH (08:10)
[2016-05-30] MEDS: FUROSEMIDE 20 MG TABLET PO SCH (08:10)
[2016-05-30] MEDS: METOPROLOL TARTRATE 50 MG TABLET PO SCH (08:10)
[2016-05-30] MEDS: POTASSIUM CHLORIDE 10 MEQ TAB.SR PO SCH (08:10)
[2016-05-30] MEDS: ACETAMINOPHEN 325 MG TABLET PO PRN (08:28)
[2016-05-30 08:49] VITALS: BP 138/90
[2016-05-30] MEDS: ALBUTEROL/IPRATROPIUM 2.5/0.5 MG 3 ML/EACH DOSE NEB SCH ×2 (09:10→12:38)
--- NOTE | 2016-05-30 11:39 | DS ---
Lindsey Sherwood ADMISSION DATE: 05/24/2016 DISCHARGE DATE: 05/30/2016 ADMISSION DIAGNOSES: 1. Community acquired pneumonia, presumed bacterial, left lower lobe with associated pleural effusion. 2. Atrial fibrillation, new diagnosis, so it appears that she has been in it for several weeks prior to admission. 3. History of polio wearing chronic braces and chronic suprapubic catheter as a result. 4. Hypertension. 5. Gastroesophageal reflux disease. 6. Chronic hyponatremia with a baseline in the high 120's. 7. Dementia at baseline. DISCHARGE DIAGNOSES: 1. Community acquired pneumonia, presumed bacterial, left lower lobe with associated pleural effusion. 2. Atrial fibrillation, new diagnosis, so it appears that she has been in it for several weeks prior to admission. 3. History of polio wearing chronic braces and chronic suprapubic catheter as a result. 4. Hypertension. 5. Gastroesophageal reflux disease. 6. Chronic hyponatremia with a baseline in the high 120's. 7. Dementia at baseline. 8. All cultures remained negative. PROCEDURES: 1. Thoracentesis on 05/26/2016 with return of 550 mL of clear fluid consistent with a transudate. All cultures remained negative. Cytology negative. 2. Echocardiogram 05/27/2016 with an ejection fraction of 65% and mild diastolic dysfunction noted. ADMIT HISTORY AND PHYSICAL: Please see Dr. Salcido's note for details. Briefly, Lindsey is an 85-year-old female who presented to the emergency room with about a one month history of a cough with gradually increasing shortness of breath two days prior to admission. In the emergency room, she was worked up and found to have chest x-ray evidence of pneumonia and a mild oxygen requirement. She also had a pleural effusion noted. It was elected to admit her to the hospitalist service for further treatment. HOSPITAL COURSE: She was admitted and started on Rocephin and Azithromycin. Cultures were drawn with results as noted above. She did undergo a thoracentesis as noted above due to persistent shortness of breath, this did seem to improve her breathing. She was started on a prednisone course due to persistent wheezing. It was felt she may have some possible underlying, undiagnosed chronic obstructive pulmonary disease and this did seem to help her and she is being discharged on a taper. DISCHARGE MEDICATIONS: 1. Cranberry extract 1 by mouth daily. 2. Ferrous sulfate 325 by mouth daily. 3. Lansoprazole 30 mg by mouth daily. 4. Hiprex 1 gm by mouth twice daily. 5. Singulair 10 mg by mouth daily. 6. Remeron 30 mg by mouth at bedtime. 7. Vitamin D3 1000 units by mouth daily. 8. Sodium chloride tablets 1 gm by mouth twice daily. 9. Tylenol as needed. 10. Alprazolam 0.125 mg by mouth every 8 hours as needed for breakthrough anxiety. 11. Amlodipine 5 mg by mouth every morning. 12. Cefprozil 250 by mouth twice daily. 13. Docusate 100 mg by mouth twice daily. 14. Lasix 20 mg by mouth every morning. 15. Metoprolol 100 mg by mouth twice daily. 16. Potassium chloride 10 mEq by mouth twice daily. 17. Prednisone taper 20 mg tablets one by mouth daily x4 days, then one half by mouth daily x4 days, then off. DISCHARGE FOLLOW UP: Will be with Imani Chavez as arranged. She is being discharged to [facility] at [facility] with [facility] living arrangements to be determined as there is concern about her current situation. JOB: [id number] CC: Imani Chavez, [place]REE
== END 2016-05-30 13:15 | DRG 194 ==
LOC: ED 09:19 → MS 12:08
PROVIDERS: ADMIT Family Medicine; ATTEND Family Medicine
PROC: 0W9B3ZX Drainage of Left Pleural Cavity, Percutaneous Approach, Diagnostic (ICD-10-PCS; principal; 2016-05-26)
DX: J15.9 Unspecified bacterial pneumonia (principal); E87.1 Hypo-osmolality and hyponatremia; I48.91 Unspecified atrial fibrillation; K57.90 Diverticulosis of intestine, part unspecified, without perforation or abscess without bleeding; F32.9 Major depressive disorder, single episode, unspecified; K21.9 Gastro-esophageal reflux disease without esophagitis; I10 Essential (primary) hypertension; Z46.6 Encounter for fitting and adjustment of urinary device; A80.9 Acute poliomyelitis, unspecified; N31.9 Neuromuscular dysfunction of bladder, unspecified; M48.00 Spinal stenosis, site unspecified; K59.00 Constipation, unspecified; Z66 Do not resuscitate